=== PATIENT | male | born 1985 | race Caucasian/White ===

== ENCOUNTER 2016-09-03 16:11 | Emergency (ER) | payer OTHER ==
[2016-09-03] MEDS ORDERED: Aspirin 81 MG Tab.Chew PO ONE (16:24)
[2016-09-03] MEDS ORDERED: Ketorolac 30 MG/ML SDV IVPUSH ONE (16:24)
[2016-09-03] MEDS ORDERED: Alum Hydrox/Mag Hydrox/Simeth 15 ML, Metoclopramide 5 MG, Lidocaine 2% 5 ML PO ONE ×3 (16:24)
[2016-09-03] MEDS ORDERED: Famotidine 20 MG/2 ML SDV IVPUSH ONE (16:24)
[2016-09-03] MEDS ORDERED: Nitroglycerin 0.4 MG Tab.SL SL ONE (16:24)
[2016-09-03] MEDS ORDERED: Aspirin 81 MG Tab.Chew ONE (16:49)
--- NOTE | 2016-09-03 16:59 | EDM.PDOC ---
ED HPI GENERAL MEDICAL PROBLEM - General Chief Complaint: Chest Pain Stated Complaint: CHEST PAIN Time Seen by Provider: 09/03/16 16:40 Source of Information: Reports: Patient History Limitations: Reports: No Limitations - History of Present Illness INITIAL COMMENTS - FREE TEXT/NARRATIVE: History of present illness: [30-year-old male comes in complaining of chest pain, pressure and tightness. Patient indicates that he has known high blood pressure but he is scared that he is having a heart attack. Patient has a history of anxiety and a history of hypertension that is uncontrolled as well as a questionable familial history of cardiac issues.] Review of systems: As per history of present illness and below otherwise all systems reviewed and negative. Past medical history: As per history of present illness and as reviewed below otherwise noncontributory. Surgical history: As per history of present illness and as reviewed below otherwise noncontributory. Social history: No reported history of drug or alcohol abuse. Family history: As per history of present illness and as reviewed below otherwise noncontributory. Physical exam: HEENT: Atraumatic, normocephalic, pupils reactive, negative for conjunctival pallor or scleral icterus, mucous membranes moist, throat clear, neck supple, nontender, trachea midline. Lungs: Clear to auscultation, breath sounds equal bilaterally, chest nontender. Heart: S1S2, regular, negative for clicks, rubs, or JVD. Abdomen: Soft, nondistended, nontender. Negative for masses or hepatosplenomegaly. Negative for costovertebral tenderness. Pelvis: Stable nontender. Genitourinary: Deferred. Rectal: Deferred. Extremities: Atraumatic, negative for cords or calf pain. Neurovascular unremarkable. Neuro: Awake, alert, oriented. Cranial nerves II through XII unremarkable. Cerebellum unremarkable. Motor and sensory unremarkable throughout. Exam nonfocal. Diagnostics: [CBC, CMP, EKG, troponin, chest x-ray, amylase, lipase] Therapeutics: [IV fluids, GI cocktail, Toradol, aspirin, nitroglycerin sublingual 3] Impression: [Atypical chest pain, anxiety, hypertension] Plan: [Continue antihypertensives follow-up with PCP] Definitive disposition and diagnosis as appropriate pending reevaluation and review of above. Chest Pain Score (Numeric/FACES): 3 - Related Data Allergies Allergy/AdvReac Type Severity Reaction Status Date / Time No Known Allergies Allergy Verified 09/03/16 16:17 Home Meds: Home Meds Lisinopril/Hydrochlorothiazide [Lisinopril-Hctz 10-12.5 mg Tab] 1 tab PO DAILY 09/21/15 [History] amLODIPine [Norvasc] 1 tab PO DAILY 09/21/15 [History] Past Medical History HEENT History: Reports: None Cardiovascular History: Reports: Hypertension Respiratory History: Reports: None Gastrointestinal History: Reports: GERD Genitourinary History: Reports: None Musculoskeletal History: Reports: None Neurological History: Reports: None Psychiatric History: Reports: Anxiety Endocrine/Metabolic History: Reports: None Hematologic History: Reports: None Immunologic History: Reports: None Oncologic (Cancer) History: Reports: None Dermatologic History: Reports: None - Infectious Disease History Infectious Disease History: Reports: Chicken Pox - Past Surgical History Head Surgeries/Procedures: Reports: None Male Surgical History: Reports: None Social & Family History - Family History Family Medical History: Noncontributory - Tobacco Use Smoking Status *Q: Current Every Day Smoker Years of Tobacco use: 8 Packs/Tins Daily: 0.7 - Caffeine Use Caffeine Use: Reports: None - Alcohol Use Days Per Week of Alcohol Use: 5 Number of Drinks Per Day: 5 Total Drinks Per Week: 25 - Recreational Drug Use Recreational Drug Use: No ED ROS GENERAL - Review of Systems Review Of Systems: See Below (See history of present illness) ED EXAM, GENERAL - Physical Exam Exam: See Below (See history of present illness) Course - Vital Signs Last Recorded V/S: Last Vital Signs Temp Pulse 119 H 09/03/16 16:15 Resp 24 H 09/03/16 17:10 BP 117/62 09/03/16 17:10 Pulse Ox 98 09/03/16 17:10 - Orders/Labs/Meds Orders: Active Orders 24 hr Category Date Time Status Cardiac Monitoring [RC] . DIRECTED Care 09/03/16 16:24 Active EKG Documentation Completion [RC] STAT Care 09/03/16 16:24 Active Chest 1V Frontal [CR] Stat Exams 09/03/16 16:24 Taken Saline Lock Insert [OM.PC] Stat Oth 09/03/16 16:24 Ordered Labs: Laboratory Tests 09/03/16 09/03/16 09/03/16 Range/Units 16:40 16:40 16:40 WBC 7.23 (4.0-11.0) K/uL RBC 4.87 (4.50-5.90) M/uL Hgb 15.0 (13.0-17.0) g/dL Hct 43.0 (38.0-50.0) % MCV 88.3 (80.0-98.0) fL MCH 30.8 (27.0-32.0) pg MCHC 34.9 (31.0-37.0) g/dL RDW Std Deviation 38.9 (28.0-62.0) fl RDW Coeff of Devon 12 (11.0-15.0) % Plt Count 251 (150-400) K/uL MPV 9.50 (7.40-12.00) fL Neut % (Auto) 49.2 (48.0-80.0) % Lymph % (Auto) 42.5 H (16.0-40.0) % Hayes % (Auto) 6.4 (0.0-15.0) % Eos % (Auto) 1.8 (0.0-7.0) % Baso % (Auto) 0.1 (0.0-1.5) % Neut # (Auto) 3.6 (1.4-5.7) K/uL Lymph # (Auto) 3.1 H (0.6-2.4) K/uL Hayes # (Auto) 0.5 (0.0-0.8) K/uL Eos # (Auto) 0.1 (0.0-0.7) K/uL Baso # (Auto) 0.0 (0.0-0.1) K/uL Nucleated RBC % 0.0 /100WBC Nucleated RBCs # 0 K/uL Sodium 137 (136-146) mmol/L Potassium 3.8 (3.5-5.1) mmol/L Chloride 103 (98-110) mmol/L Carbon Dioxide 24 (21-31) mmol/L BUN 16 (6.0-23.0) mg/dL Creatinine 1.2 (0.6-1.5) mg/dL Est Cr Clr Drug Dosing 87.08 mL/min Estimated GFR (MDRD) > 60.0 ml/min Glucose 124 H (60-110) mg/dL Calcium 8.9 (8.8-10.8) mg/dL Total Bilirubin 0.4 (0.1-1.5) mg/dL AST 28 (5-40) IU/L ALT 54 (8-54) IU/L Alkaline Phosphatase 70 (40-150) Troponin I < 0.10 (0.0-0.29) NG/ML Total Protein 7.6 (6.0-8.0) g/dL Albumin 4.6 (3.5-5.0) g/dL Globulin 3.0 (2.0-3.5) g/dL Albumin/Globulin Ratio 1.5 (1.3-2.8) Amylase 56 (10-90) U/L Lipase 22 (7-80) U/L Meds: Medications Discontinued Medications Generic Name Dose Route Start Last Admin Trade Name Freq PRN Reason Stop Dose Admin Aspirin 324 mg 09/03/16 16:24 09/03/16 16:47 Aspirin PO 09/03/16 16:25 324 mg ONETIME ONE Administration Aspirin Confirm 09/03/16 16:49 09/03/16 16:58 Aspirin Administered 09/03/16 16:50 Not Given Dose 81 mg .ROUTE .STK-MED ONE Al Hydroxide/Mg Hydroxide 15 0 ml 09/03/16 16:24 09/03/16 16:51 ml/ Metoclopramide HCl 5 mg/ PO 09/03/16 16:25 1 each Lidocaine HCl 5 ml ONETIME ONE Administration Famotidine 20 mg 09/03/16 16:24 09/03/16 17:02 Pepcid IVPUSH 09/03/16 16:25 20 mg ONETIME ONE Administration Sodium Chloride 1,000 mls @ 999 mls/hr 09/03/16 17:06 09/03/16 17:12 Normal Saline IV 09/03/16 18:06 999 mls/hr STAT ONE Administration Sodium Chloride 1,000 mls @ 999 mls/hr 09/03/16 17:11 09/03/16 17:13 Normal Saline IV 09/03/16 18:11 Not Given NOW STA Ketorolac Tromethamine 30 mg 09/03/16 16:24 09/03/16 16:58 Toradol IVPUSH 09/03/16 16:25 30 mg ONETIME ONE Administration Nitroglycerin 0.4 mg 09/03/16 16:24 09/03/16 16:57 Nitrostat SL 09/03/16 16:25 0.4 mg ONETIME ONE Administration Departure - Departure Time of Disposition: 18:19 Disposition: Home, Self-Care 01 Condition: Good Clinical Impression: Atypical chest pain Forms: ED Department Discharge Additional Instructions: The following information is given to patients seen in the emergency department who are being discharged to home. This information is to outline your options for follow-up care. We provide all patients seen in our emergency department with a follow-up referral. The need for follow-up, as well as the timing and circumstances, are variable depending upon the specifics of your emergency department visit. If you don't have a primary care physician on staff, we will provide you with a referral. We always advise you to contact your personal physician following an emergency department visit to inform them of the circumstance of the visit and for follow-up with them and/or the need for any referrals to a consulting specialist. The emergency department will also refer you to a specialist when appropriate. This referral assures that you have the opportunity for follow-up care with a specialist. All of these measure are taken in an effort to provide you with optimal care, which includes your follow-up. Under all circumstances we always encourage you to contact your private physician who remains a resource for coordinating your care. When calling for follow-up care, please make the office aware that this follow-up is from your recent emergency room visit. If for any reason you are refused follow-up, please contact the [facility] Emergency Department at and asked to speak to the emergency department charge nurse. Follow-up with primary care provider in 1-2 days Return to ED as needed as discussed - My Orders Last 24 Hours: My Active Orders 09/03/16 16:24 Cardiac Monitoring [RC] . DIRECTED EKG Documentation Completion [RC] STAT Chest 1V Frontal [CR] Stat Saline Lock Insert [OM.PC] Stat - Assessment/Plan Last 24 Hours: My Active Orders 09/03/16 16:24 Cardiac Monitoring [RC] . DIRECTED EKG Documentation Completion [RC] STAT Chest 1V Frontal [CR] Stat Saline Lock Insert [OM.PC] Stat
[2016-09-03] MEDS ORDERED: Sodium Chloride 0.9% 1,000 ML IV ONE (17:06)
[2016-09-03 17:09] LABS: CHLORIDE,CL 103 mmol/L (98-110); SODIUM,NA 137 mmol/L (136-146)
[2016-09-03] MEDS ORDERED: Sodium Chloride 0.9% 1,000 ML IV STA (17:11)
[2016-09-03 21:44] VITALS: BP 123/65
--- NOTE | 2016-09-04 13:53 | CR ---
EXAM DATE: 09/03/16 PATIENT'S AGE: 30 Patient: ELLYN YATES Facility: [place], [place] Site . Site : 1985 Study: XRay Chest [id number]/18/2017 4:59:12 PM Ordering Physician: Doctor Maloney Final Report: INDICATION: chest pain TECHNIQUE: Chest 1 view. COMPARISON: None FINDINGS: Cardiovascular and mediastinum: Heart size and vasculature are normal in caliber and appearance. Mediastinum is within normal limits. Lungs and pleural space: Lungs are clear. No sign of infiltrate or mass. No sign of pleural effusion. No pneumothorax. Bones and soft tissues: No significant findings. IMPRESSION: Unremarkable chest. Dictated by: Ming Lemos MD @ 09/03/2016 17:08:49 (Electronic Signature) Report Signed by Proxy. [facility]ITALGil
== END 2016-09-03 18:35 | disposition home or self-care (01) ==
LOC: MW.ED 16:11
DX: R07.89 Other chest pain (principal); I10 Essential (primary) hypertension; F41.9 Anxiety disorder, unspecified; K21.9 Gastro-esophageal reflux disease without esophagitis; F17.210 Nicotine dependence, cigarettes, uncomplicated; Z79.899 Other long term (current) drug therapy
CPT/HCPCS: 36415; 71010; 80053; 82150; 83690; 84484; 85025; 93005; 96361; 96374; 96375; 99285; A9270; J1885; J7040; 99284

== ENCOUNTER 2018-06-15 04:08 | Emergency (ER) | payer SELFPAY ==
[2018-06-15] MEDS ORDERED: Ondansetron 4 MG/2 ML SDV IVPUSH ONE (04:12)
[2018-06-15] MEDS ORDERED: Ondansetron 4 MG/2 ML SDV ONE (04:13)
[2018-06-15 04:53] LABS: CHLORIDE,CL 76 mmol/L (98-107)
[2018-06-15 05:14] LABS: SODIUM,NA 118 mmol/L (136-148)
[2018-06-15] MEDS ORDERED: Sodium Chloride 0.9% 1,000 ML IV ONE ×2 (05:22→07:31)
[2018-06-15] MEDS ORDERED: MVI, Adult with Vitamin K 10 ML, Thiamine 100 MG, Folic Acid 1 MG in Sodium Chloride 0.... IV ONE ×4 (05:23)
[2018-06-15] MEDS ORDERED: LORazepam 2 MG/ML SDV IVPUSH ONE ×5 (05:23→08:37)
[2018-06-15] MEDS ORDERED: LORazepam 2 MG/ML SDV ONE (06:57)
--- NOTE | 2018-06-15 07:13 | EDM.PDOC ---
ED HPI GENERAL MEDICAL PROBLEM - General Chief Complaint: Drug or Alcohol Abuse Stated Complaint: AMBULANCE Time Seen by Provider: 06/15/18 06:49 - History of Present Illness INITIAL COMMENTS - FREE TEXT/NARRATIVE: HISTORY AND PHYSICAL: History of present illness: Patient 32-year-old white male who presents status post seizure this was witnessed by his at home last approximately 1 minute patient is reported to abuse alcohol and was drinking last night. Review of systems: As per history of present illness and below otherwise all systems reviewed and negative. Past medical history: As per history of present illness and as reviewed below otherwise noncontributory. Surgical history: As per history of present illness and as reviewed below otherwise noncontributory. Social history: No reported history of drug or alcohol abuse. Family history: As per history of present illness and as reviewed below otherwise noncontributory. Physical exam: HEENT: Atraumatic, normocephalic, pupils reactive, negative for conjunctival pallor or scleral icterus, mucous membranes moist, throat clear, neck supple, nontender, trachea midline. Lungs: Clear to auscultation, breath sounds equal bilaterally, chest nontender. Heart: S1S2, regular, negative for clicks, rubs, or JVD. Abdomen: Soft, nondistended, nontender. Negative for masses or hepatosplenomegaly. Negative for costovertebral tenderness. Pelvis: Stable nontender. Genitourinary: Deferred. Rectal: Deferred. Extremities: Atraumatic, negative for cords or calf pain. Neurovascular unremarkable. Neuro: Upon arrival patient's awake somewhat confused is moving all extremities does follow commands as a limited grossly nonfocal exam Diagnostics: CBC CMP EtOH chest x-ray EKG Therapeutics: Saline 1 L bolus banana bag at 125 hour Ativan 2 mg IV Impression: #1 alcohol abuse #2 hyponatremia with seizure Definitive disposition and diagnosis as appropriate pending reevaluation and review of above. - Related Data Allergies Allergy/AdvReac Type Severity Reaction Status Date / Time No Known Allergies Allergy Verified 06/15/18 04:22 Home Meds: Home Meds Lisinopril/Hydrochlorothiazide [Lisinopril-Hctz 10-12.5 mg Tab] 1 tab PO DAILY 09/21/15 [History] amLODIPine [Norvasc] 1 tab PO DAILY 09/21/15 [History] Omeprazole 20 mg PO DAILY 02/04/18 [History] ClonazePAM [KlonoPIN] 1 mg PO BID PRN 06/15/18 [History] Past Medical History HEENT History: Reports: None Cardiovascular History: Reports: Hypertension Respiratory History: Reports: None Gastrointestinal History: Reports: GERD Genitourinary History: Reports: None Musculoskeletal History: Reports: None Neurological History: Reports: None Psychiatric History: Reports: Addiction, Anxiety Endocrine/Metabolic History: Reports: None Hematologic History: Reports: None Immunologic History: Reports: None Oncologic (Cancer) History: Reports: None Dermatologic History: Reports: None - Infectious Disease History Infectious Disease History: Reports: Chicken Pox - Past Surgical History Head Surgeries/Procedures: Reports: None Male Surgical History: Reports: None Social & Family History - Family History Family Medical History: Noncontributory - Tobacco Use Smoking Status *Q: Current Every Day Smoker Years of Tobacco use: 10 Packs/Tins Daily: 1 - Caffeine Use Caffeine Use: Reports: Tea - Alcohol Use Days Per Week of Alcohol Use: 7 Number of Drinks Per Day: 1 Total Drinks Per Week: 7 - Recreational Drug Use Recreational Drug Use: No ED ROS GENERAL - Review of Systems Review Of Systems: ROS reveals no pertinent complaints other than HPI. ED EXAM, GENERAL - Physical Exam Exam: See Below (See dictation) Course - Vital Signs Text/Narrative:: Patient's emergency department course has been unremarkable he remains somewhat confused per I discussed transfer with Dr. Vuong at [facility] emergency department and graciously accepted the patient. He'll be transferred via ground ambulance Last Recorded V/S: Last Vital Signs Temp 36.0 C 06/15/18 04:23 Pulse 96 06/15/18 06:45 Resp 18 06/15/18 06:45 BP 148/83 H 06/15/18 06:45 Pulse Ox 96 06/15/18 06:45 - Orders/Labs/Meds Orders: Active Orders 24 hr Category Date Time Status Initiate/Renew Violent-Self Destructive Restraints >/= Care 06/15/18 05:30 Ordered 18yo Q4H Nrsg Assess:Viol/S.Dest Reasse [RC] Q24H Care 06/16/18 05:29 Active Brain wo Cont [MR] Stat Exams 06/15/18 05:23 Stop Req Head wo Cont [CT] Stat Exams 06/15/18 05:59 Ordered DRUG SCREEN, URINE [URCHEM] Stat Lab 06/15/18 04:17 Ordered Labs: Laboratory Tests 06/15/18 06/15/18 Range/Units 04:29 04:29 WBC 17.89 H (4.0-11.0) K/uL RBC 5.22 (4.50-5.90) M/uL Hgb 16.3 (13.0-17.0) g/dL Hct 42.8 (38.0-50.0) % MCV 82.0 (80.0-98.0) fL MCH 31.2 (27.0-32.0) pg MCHC 38.1 H (31.0-37.0) g/dL RDW Std Deviation 35.5 (28.0-62.0) fl RDW Coeff of Devon 12 (11.0-15.0) % Plt Count 381 (150-400) K/uL MPV 8.70 (7.40-12.00) fL Add Manual Diff YES Neutrophils % (Manual) 56 (48.0-80.0) % Band Neutrophils % 4 % Lymphocytes % (Manual) 39 (16.0-40.0) % Monocytes % (Manual) 1 (0.0-15.0) % Nucleated RBC % 0.0 /100WBC Absolute Seg Neuts 10.0 H (1.4-5.7) Band Neutrophils # 0.7 Lymphocytes # (Manual) 7.0 H (0.6-2.4) Monocytes # (Manual) 0.2 (0.0-0.8) Nucleated RBCs # 0 K/uL Sodium 118 L* (136-148) mmol/L Potassium 3.4 L (3.5-5.1) mmol/L Chloride 76 L (98-107) mmol/L Carbon Dioxide 8.4 L (21.0-32.0) mmol/L BUN 13 (7.0-18.0) mg/dL Creatinine 1.3 (0.8-1.3) mg/dL Est Cr Clr Drug Dosing 78.92 mL/min Estimated GFR (MDRD) > 60.0 ml/min Glucose 155 H (74-106) mg/dL Calcium 8.9 (8.5-10.1) mg/dL Total Bilirubin 0.9 (0.2-1.0) mg/dL AST 57 H (15-37) IU/L ALT 55 (14-63) IU/L Alkaline Phosphatase 76 (46-116) U/L Total Protein 8.3 H (6.4-8.2) g/dL Albumin 4.3 (3.4-5.0) g/dL Globulin 4.0 (2.6-4.0) g/dL Albumin/Globulin Ratio 1.1 (0.9-1.6) Ethyl Alcohol 117 mg/dL Meds: Medications Discontinued Medications Generic Name Dose Route Start Last Admin Trade Name Freq PRN Reason Stop Dose Admin Multivitamins/Minerals 10 ml/ 1,011.2 mls @ 999 mls/hr 06/15/18 05:23 05:51 Thiamine HCl 100 mg/ Folic IV 06/15/18 06:23 999 mls/hr Acid 1 mg/ Sodium Chloride ONETIME ONE Administration Sodium Chloride 1,000 mls @ 999 mls/hr 06/15/18 05:22 06/15/18 05:32 Normal Saline IV 06/15/18 06:22 999 mls/hr .Bolus ONE Administration Lorazepam 2 mg 06/15/18 05:23 06/15/18 05:32 Ativan IVPUSH 06/15/18 05:24 2 mg ONETIME ONE Administration Lorazepam 2 mg 06/15/18 06:57 06/15/18 07:01 Ativan IVPUSH 06/15/18 06:58 2 mg ONETIME ONE Administration Lorazepam Confirm 06/15/18 06:57 06/15/18 07:01 Ativan Administered 06/15/18 06:58 Not Given Dose 2 mg .ROUTE .STK-MED ONE Ondansetron HCl Confirm 06/15/18 04:13 06/15/18 04:29 Zofran Administered 06/15/18 04:14 Not Given Dose 4 mg .ROUTE .STK-MED ONE Ondansetron HCl 4 mg 06/15/18 04:12 06/15/18 04:29 Zofran IVPUSH 06/15/18 04:13 4 mg ONETIME ONE Administration Departure - Departure Time of Disposition: 07:12 Disposition: DC/Tfer to Acute Hospital 02 Condition: Serious Clinical Impression: Alcohol abuse, Hyponatremia, Seizure - Discharge Information Referrals: PCP,None [Primary Care Provider] - - My Orders Last 24 Hours: My Active Orders 06/15/18 04:17 DRUG SCREEN, URINE [URCHEM] Stat 06/15/18 05:23 Brain wo Cont [MR] Stat 06/15/18 05:30 Initiate/Renew Violent-Self Destructive Restraints >/=18yo Q4H 06/15/18 05:59 Head wo Cont [CT] Stat 06/16/18 05:29 Nrsg Assess:Viol/Lara Machucae [RC] Q24H - Assessment/Plan Last 24 Hours: My Active Orders 06/15/18 04:17 DRUG SCREEN, URINE [URCHEM] Stat 06/15/18 05:23 Brain wo Cont [MR] Stat 06/15/18 05:30 Initiate/Renew Violent-Self Destructive Restraints >/=18yo Q4H 06/15/18 05:59 Head wo Cont [CT] Stat 06/16/18 05:29 Nrsg Assess:Viol/Lara Machucae [RC] Q24H
[2018-06-15 07:25] VITALS: BP 144/88
--- NOTE | 2018-06-15 07:47 | CR ---
INDICATION: Seizure. TECHNIQUE: AP portable chest x-ray. FINDINGS: Moderately prominent elevation of the right hemidiaphragm of uncertain etiology. Such elevation could indicate right hemidiaphragmatic weakness or paralysis. If clinically desired fluoroscopic sniff test could further evaluate right hemidiaphragm. Crowding of the bronchovascular markings in the right hilar region likely related to elevation right hemidiaphragm. No focal infiltrate or consolidation either lung. Heart size normal. Chest otherwise negative. Dictated by Hardik Cervantes MD @ Jun 15 2018 7:44AM Signed by Dr. Hardik Cervantes @ Jun 15 2018 7:44AM
== END 2018-06-15 08:50 ==
LOC: MW.ED 04:08
DX: R56.9 Unspecified convulsions (principal); F10.10 Alcohol abuse, uncomplicated; E87.1 Hypo-osmolality and hyponatremia; I10 Essential (primary) hypertension; K21.9 Gastro-esophageal reflux disease without esophagitis; F41.9 Anxiety disorder, unspecified; F17.210 Nicotine dependence, cigarettes, uncomplicated; Z79.899 Other long term (current) drug therapy
CPT/HCPCS: 36415; 71045; 80053; 85025; 93005; 96361; 96365; 96366; 96375; 96376; 99285; G0480; J2060; J2405; J3411; J7040